=== PATIENT | male | born 1940 | race Caucasian/White ===

== ENCOUNTER 2017-07-04 19:50 | Inpatient (IN) | payer OTHER ==
[2017-07-04 20:00] VITALS: BMI 31.4
[2017-07-04 20:16] LABS: BASOPHIL 0.2 % (0-2.0); EOSINOPHIL 0.8 % (0-4.5); MCH 32.8 pg (25.7-33.7); MCHC 34.9 g/dl (32.0-35.9); MEAN CELL VOLUME 94.2 fl (80-96); MEAN PLT VOLUME 10.3 fl (7.5-11.1); NEUTROPHILS 74.9 % (42.8-82.8); PLATELET COUNT 115 K/MM3 (134-434); RDW 12.3 % (11.9-15.9); WHITE BLOOD COUNT 7.7 K/mm3 (4.0-10.8)
--- NOTE | 2017-07-04 20:16 | PDOC ---
History of Present Illness - General Chief Complaint: Redness To Affected Area Stated Complaint: REDNESS TO FACE, RT ORBITAL AREA Time Seen by Provider: 07/04/17 20:02 - History of Present Illness Initial Comments: This 76-year-old man presents with several day history of progressive right periorbital/right nasal erythema and edema. Patient states that he scraped the tip of his nose in the shower approximately 5 days ago. After this, his nose and right periorbital area became erythematous and increasingly edematous. He states that he did not have a significant amount of pain or fever/chills during this time. Yesterday morning, he noted that his right eye was swollen shut and he visited urgent care center. He was started on Augmentin/valacyclovir. He saw his PMD, Dr. Ojeda today. 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 He was referred here for evaluation and probable admission Past History - Past Medical History Allergies/Adverse Reactions: Allergies Allergy/AdvReac Type Severity Reaction Status Date / Time No Known Allergies Allergy Verified 07/04/17 19:57 Home Medications: Ambulatory Orders Amoxicillin/Potassium Clav [Augmentin 875-125 Tablet] 1 each PO Q12H 07/04/17 Valacyclovir HCl [Valtrex -] 1,000 mg PO Q8H 07/04/17 Other medical history: DENIES - Suicide/Smoking/Psychosocial Hx Smoking History: Never smoked Have you smoked in the past 12 months: No Hx Alcohol Use: No Drug/Substance Use Hx: No Substance Use Type: Alcohol Review of Systems - Review of Systems Able to Perform ROS?: Yes *Physical Exam - Vital Signs Last Vital Signs Temp Pulse Resp BP Pulse Ox 99.3 F 98 H 18 183/86 95 07/04/17 19:50 07/04/17 19:50 07/04/17 19:50 07/04/17 19:50 07/04/17 19:50 07/04/17 22:27 - Physical Exam Comments: GENERAL: Adult man, alert and oriented 3 in no acute distress Vital signs as noted HEAD: Normal with no signs of trauma. FACIAL: Marked erythema/edema of right periorbital area.. Right conjunctiva erythematous; cornea clear, pupil 2 mm and briskly reactive/equal No fluctuance/tenderness of right periorbital region; nose is erythematous and edematous with ulcerated lesion at tip NECK: Normal range of motion, supple without lymphadenopathy, JVD, or masses. LUNGS: Breath sounds equal, clear to auscultation bilaterally. No wheezes, and no crackles. HEART:Regular rate and rhythm, normal S1 and S2 without murmur, rub or gallop. ABDOMEN:.normal bowel sounds No guarding,tenderness or rebound.No masses No distention. EXTREMITIES: Normal range of motion, no edema. No clubbing or cyanosis. No erythema, or tenderness. NEUROLOGICAL: Cranial nerves II through XII grossly intact. Normal speech. No focal neurological deficits. MUSCULOSKELETAL: Back non-tender to palpation, no CVA tenderness 12-lead electrocardiogram is performed and interpreted by me. This shows normal sinus rhythm at 77 bpm. 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 No evidence of acute ST or T-wave abnormalities. There are no previous EKG tracings available for comparison. Portable chest x-ray shows no evidence of acute disease. ED Treatment Course - LABORATORY CBC & Chemistry Diagram: 07/04/17 20:01 07/04/17 20:01 Medical Decision Making - Medical Decision Making CBC/chemistry profile/lactic acid evaluated. CT of the facial bones and head performed (both noncontrast). Preliminary results from Imaging title one teacher: Right preseptal periorbital and infraorbital soft tissue swelling compatible with cellulitis. No evidence of drainable collection visualized. Orbits and globes are intact. Retrobulbar spaces are clear. No acute findings on head CT. Laboratory evaluation notable for normal white count of 7700; platelet count is slightly decreased at 115,000. Other than mild elevation of random glucose and mild elevation of transaminases /alkaline phosphatase, no significant abnormality of chemistry profile was seen. Lactic acid normal at 1.7 Case discussed with . Since he has had progression of his symptoms while on oral antibiotics (continues to be febrile/had evidence of mild confusion while in office), admission for parenteral antibiotics is warranted. Dr. Ojeda does not admit here. Hospitalist service will be contacted. 07/04/17 23:34 Case discussed with MARION Allison,. Patient will be admitted to [place] [facility]ist service. *DC/Admit/Observation/Transfer Diagnosis at time of Disposition: Orbital cellulitis on right, Facial cellulitis - Discharge Dispostion Condition at time of disposition: Stable Admit: Yes
[2017-07-04 20:26] LABS: ALBUMIN 3.6 g/dl (3.5-5.0); ALK PHOS 94 U/L (32-92); ANION GAP 8 (8-16); BILIRUBIN,TOTAL 0.9 mg/dl (0.2-1.0); CO2 23 mmol/L (22-28); CREATININE 0.9 mg/dl (0.6-1.3); GLUCOSE,RANDOM 215 mg/dl (74-106); SGOT/AST 47 U/L (10-42); SGPT/ALT 48 U/L (10-40); TOT PROT 7.3 g/dl (6.4-8.3)
[2017-07-04 21:37] LABS: INR 1.2 (0.82-1.09); PROTHROMBIN TIME (PATIENT) 13.5 SEC (10.2-13.0)
[2017-07-04 21:40] LABS: URINE APPEARANCE Clear; URINE BILIRUBIN Negative (NEGATIVE); URINE BLOOD Negative (NEGATIVE); URINE GLUCOSE (UA) Negative (NEGATIVE); URINE KETONE Negative (NEGATIVE); URINE LEUK ESTERASE Negative (NEGATIVE); URINE NITRITE Negative (NEGATIVE); URINE PROTEIN Negative (NEGATIVE)
[2017-07-04 21:41] LABS: URINE COLOR YELLOW
[2017-07-04] MEDS ORDERED: VANCOMYCIN 1,000 MG in DEXTROSE 5%-WATER - 250 ML IVPB ONE (22:15)
[2017-07-04] MEDS ORDERED: VANCOMYCIN 1,000 MG VIAL (RESTRICTED TO ID ONLY) ONE (22:17)
--- NOTE | 2017-07-04 23:27 | HP ---
CHIEF COMPLAINT: Facial/Orbital Swelling and Redness PCP: Dr. Ojeda HISTORY OF PRESENT ILLNESS: This is a 76 year old man with a recent history of mauro-orbital and facial Cellulitis. Patient presents to the ED with increased erythema and swelling to nose, R- orbit and face x 5 days. Patient reports being seen by his PCP and was sent in for admission for Cellulitis. Patient reports hitting his nose on the shower faucet last Wednesday, resulting in a cut. He then reports noting erythema and edema to his nose which spread to his R- orbit and R- side of face. He reports going to urgent care for treatment Rx- Augmentin, Valcylovir. Patient reports being UTD with his TD vaccine. Patient reports difficulty swallowing. Patient denies fever, chills, cough, dizziness, POPE, CP, AP, N/V/D, dysuria. Patient denies numbness or tingling. ER course was notable for: (1) CT Facial Bones/Head: Right preseptal periorbital and infraorbital soft tissue swelling compatible with cellulitis. No evidence of drainable collection visualized. 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 Family History: Non-Contributory Allergies No Known Allergies Allergy (Verified 07/04/17 19:57) HOME MEDICATIONS: Home Medications Medication Instructions Recorded Amoxicillin/Potassium Clav 1 each PO Q12H 07/04/17 [Augmentin 875-125 Tablet] Valacyclovir HCl [Valtrex -] 1,000 mg PO Q8H 07/04/17 REVIEW OF SYSTEMS CONSTITUTIONAL: Absent: fever, chills, diaphoresis, generalized weakness, malaise, loss of appetite, weight change HEENT: difficulty swallowing, marked erythema, swelling to R- periorbital, yellow crusting to R- eyelid, + R conjunctivae injection ,R- side of face, ulceration to tip of nose Absent: rhinorrhea, nasal congestion, throat pain, throat swelling, mouth swelling, ear pain, eye pain, visual changes CARDIOVASCULAR: Absent: chest pain, syncope, palpitations, irregular heart rate, lightheadedness , peripheral edema RESPIRATORY: Absent: cough, shortness of breath, dyspnea with exertion, orthopnea, wheezing, stridor, hemoptysis GASTROINTESTINAL: Absent: abdominal pain, abdominal distension, nausea, vomiting, diarrhea, constipation, melena, hematochezia GENITOURINARY: Absent: dysuria, frequency, urgency, hesitancy, hematuria, flank pain, genital pain MUSCULOSKELETAL: Absent: myalgia, arthralgia, joint swelling, back pain, neck pain SKIN: Absent: rash, itching, pallor HEMATOLOGIC/IMMUNOLOGIC: Absent: easy bleeding, easy bruising, lymphadenopathy, frequent infections ENDOCRINE: Absent: unexplained weight gain, unexplained weight loss, heat intolerance, cold intolerance NEUROLOGIC: Absent: headache, focal weakness or paresthesias, dizziness, unsteady gait, seizure, mental status changes, bladder or bowel incontinence PSYCHIATRIC: Absent: anxiety, depression, suicidal or homicidal ideation, hallucinations. PHYSICAL EXAMINATION GENERAL:Obese, awake, alert, and fully oriented, in no acute distress. HEAD: Normal with no signs of trauma. +erythema/swelling to R- side of face, EYES: Pupils equal, round and reactive to light. marked erythema, swelling to R - periorbital, yellow crusting to R- eyelid, + R conjunctivae injection. ulceration to tip of nose EARS, NOSE, THROAT: Ears normal, nares patent, oropharynx clear without exudates. Dry mucous membranes. ulceration to tip of nose NECK: Normal range of motion, supple without lymphadenopathy, JVD, or masses. LUNGS: Breath sounds equal, clear to auscultation bilaterally. No wheezes, and no crackles. No accessory muscle use. HEART: Regular rate and rhythm, normal S1 and S2 without murmur, rub or gallop. ABDOMEN: Soft, nontender, not distended, normoactive bowel sounds, no guarding, no rebound, no masses. No hepatomegaly or splenomegaly. MUSCULOSKELETAL: Normal range of motion at all joints. No bony deformities or tenderness. No CVA tenderness. UPPER EXTREMITIES: 2+ pulses, warm, well-perfused. No cyanosis. No clubbing. No peripheral edema. LOWER EXTREMITIES: 2+ pulses, warm, well-perfused. No calf tenderness. No peripheral edema. Vascular changes to bilateral legs noted NEUROLOGICAL: Cranial nerves II-XII intact. Normal speech. Gait not observed. PSYCHIATRIC: Cooperative. Good eye contact. Appropriate mood and affect. SKIN: Warm, dry, normal turgor, no rashes. normal capillary refill. Laboratory Results - last 24 hr 07/04/17 07/04/17 07/04/17 20:00 20:01 20:01 WBC 7.7 RBC 4.45 Hgb 14.6 Hct 41.9 MCV 94.2 MCH 32.8 MCHC 34.9 RDW 12.3 Plt Count 115 L D MPV 10.3 Neutrophils % 74.9 Lymphocytes % 15.4 D Monocytes % 8.7 Eosinophils % 0.8 Basophils % 0.2 PT with INR INR Sodium 130 L Potassium 3.9 Chloride 99 Carbon Dioxide 23 Anion Gap 8 BUN 14 Creatinine 0.9 Creat Clearance w eGFR > 60 Random Glucose 215 H Lactic Acid 1.7 Calcium 9.0 Total Bilirubin 0.9 AST 47 H ALT 48 H Alkaline Phosphatase 94 H Total Protein 7.3 Albumin 3.6 Urine Color Urine Appearance Urine pH Ur Specific [place] Urine Protein Urine Glucose (UA) Urine Ketones Urine Blood Urine Nitrite Urine Bilirubin Urine Urobilinogen Ur Leukocyte Esterase 07/04/17 07/04/17 07/04/17 20:02 20:35 21:30 WBC RBC Hgb Hct MCV MCH MCHC RDW Plt Count MPV Neutrophils % Lymphocytes % Monocytes % Eosinophils % Basophils % PT with INR Cancelled 13.5 H INR Cancelled 1.20 Sodium Potassium Chloride Carbon Dioxide Anion Gap BUN Creatinine Creat Clearance w eGFR Random Glucose Lactic Acid Calcium Total Bilirubin AST ALT Alkaline Phosphatase Total Protein Albumin Urine Color Yellow Urine Appearance Clear Urine pH 5.0 Ur Specific [place] 1.010 Urine Protein Negative Urine Glucose (UA) Negative Urine Ketones Negative Urine Blood Negative Urine Nitrite Negative Urine Bilirubin Negative Urine Urobilinogen 1.0 Ur Leukocyte Esterase Negative Radiology Studies: CT of the facial bones and head performed (both noncontrast). Preliminary results from Imaging contract law specialist: Right preseptal periorbital and infraorbital soft tissue swelling compatible with cellulitis. No evidence of drainable collection visualized. Orbits and globes are intact. Retrobulbar spaces are clear. No acute findings on head CT. ASSESSMENT/PLAN: This is a 76 y/o man with no significant medical hx. Admitted for Facial, Periorbital Cellulitis secondary to Failed Out Patient Therapy, Hyponatremia for further evaluation of their emergent condition. Plan: 1. Cellulitis: Facial/Periorbital - Failed Out Patient Therapy - CT facial/Head- See above - Vancomycin given in ED will continue - Appreciate ID Consult - No leukocytosis, No shift, remains afebrile likely secondary to recent ABX use - LA- wnl - Blood Cultures-pending - Monitor CBC, BMP - Monitor vitals - HOB elevated 2. Hyponatremia - Likely secondary to dehydration - NS bolus given in ED - Na Corrected 131 - Will continue gentle IVF - Repeat BMP in am - Monitor vitals 3. Mild Transaminitis - Continue to monitor and treat with interventions accordingly 4. FEN - NS@42ml/hr - Replete Na - NPO 5. DVT Prophylaxis - OOB - SCDs - Heparin Sq, monitor for Thrombocytopenia Code Status: Full code Dispo: requires Inpatient care Problem List - Problem (1) Facial cellulitis Code(s): L03.211 - CELLULITIS OF FACE (2) Orbital cellulitis on right Code(s): H05.011 - CELLULITIS OF RIGHT ORBIT Visit type - Emergency Visit Emergency Visit: Yes ED Registration Date: 07/04/17 Care time: The patient presented to the Emergency Department on the above date and was hospitalized for further evaluation of their emergent condition. - New Patient This patient is new to me today: Yes Date on this admission: 07/05/17 - Critical Care Critical Care patient: No
[2017-07-04] MEDS ORDERED: SODIUM CHLORIDE 1,000 ML IV SCH (23:45)
[2017-07-05 08:17] LABS: ANION GAP 7 (8-16); CALCIUM 8.8 mg/dl (8.4-10.2); CO2 28 mmol/L (22-28); CREATININE 0.9 mg/dl (0.6-1.3); GLUCOSE,RANDOM 145 mg/dl (74-106)
[2017-07-05 08:18] LABS: BASOPHIL 1.2 % (0-2.0); EOSINOPHIL 2.5 % (0-4.5); MCH 32.2 pg (25.7-33.7); MCHC 33.7 g/dl (32.0-35.9); MEAN CELL VOLUME 95.6 fl (80-96); MEAN PLT VOLUME 9.8 fl (7.5-11.1); PLATELET COUNT 101 K/MM3 (134-434); RDW 12.1 % (11.9-15.9); WHITE BLOOD COUNT 5.7 K/mm3 (4.0-10.8)
--- NOTE | 2017-07-05 09:21 | PN ---
Physical Exam: SUBJECTIVE: Patient seen and examined, reports a burning sensation to the right side of the face, patient denies any tactile fevers. OBJECTIVE: patient is a 76 y/o male with no significant past medical history, admitted from the emergency department for periorbital cellultis. Vital Signs Period Temp Pulse Resp BP Sys/Yuan Pulse Ox Last 24 Hr 98.4 F-98.7 F 69-81 18-19 149-158/74-77 95-98 GENERAL: The patient is awake, alert, and fully oriented, in no acute distress. HEAD: Normal with no signs of trauma, vesicle with crusting to tip of nose. macular rash noted to forehead and right lateral face EYES: PERRL, extraocular movements intact, sclera anicteric, right eye-> injected sclera, perrla, eomi, erythema noted to the upper eylid, crusting noted to eyelashes. + ptosis. vesicle noted to the right outer canthus ENT: Ears normal, nares patent, oropharynx clear without exudates, moist mucous membranes. NECK: Trachea midline, full range of motion, supple. LUNGS: Breath sounds equal, clear to auscultation bilaterally, no wheezes, no crackles, no accessory muscle use. HEART: Regular rate and rhythm, S1, S2 without murmur, rub or gallop. ABDOMEN: Soft, nontender, nondistended, normoactive bowel sounds, no guarding, no rebound, no hepatosplenomegaly, no masses. EXTREMITIES: 2+ pulses, warm, well-perfused, no edema. NEUROLOGICAL: Cranial nerves II through XII grossly intact. Normal speech, gait not observed. PSYCH: Normal mood, normal affect. SKIN: Warm, dry, normal turgor, no rashes or lesions noted Laboratory Results - last 24 hr 07/05/17 07/05/17 07:00 07:00 WBC 5.7 RBC 4.23 Hgb 13.6 Hct 40.4 MCV 95.6 MCH 32.2 MCHC 33.7 RDW 12.1 Plt Count 101 L MPV 9.8 Neutrophils % 64.0 Lymphocytes % 19.5 D Monocytes % 12.8 H Eosinophils % 2.5 D Basophils % 1.2 D Sodium 136 Potassium 4.0 Chloride 101 Carbon Dioxide 28 D Anion Gap 7 L BUN 14 Creatinine 0.9 Random Glucose 145 H D Calcium 8.8 Active Medications Generic Name Dose Route Start Last Admin Trade Name Freq PRN Reason Stop Dose Admin Sodium Chloride 1,000 mls @ 125 mls/hr 07/05/17 10:00 07/05/17 10:41 Normal Saline - IV 125 mls/hr ASDIR MICHELLE Administration Acyclovir 1,000 mg/ Dextrose 270 mls @ 270 mls/hr 07/05/17 10:45 07/05/17 11:34 IVPB 270 mls/hr Q8H-IV MICHELLE Administration Cefazolin Sodium 50 mls @ 100 mls/hr 07/05/17 10:00 07/05/17 10:41 Ancef 1 Gm Premixed Ivpb - IVPB 100 mls/hr Q8H-IV MICHELLE Administration Radiology Studies: CT of the facial bones and head performed (both noncontrast). Preliminary results from Imaging filtration operator: Right preseptal periorbital and infraorbital soft tissue swelling compatible with cellulitis. No evidence of drainable collection visualized. Orbits and globes are intact. Retrobulbar spaces are clear. No acute findings on head CT. ASSESSMENT/PLAN: 1. ID Cellulitis: Facial/Periorbital - high clinical suspicion for herpes zooster with opthalomic involvement, start acylovir IV, case discussed with opthamologist, Dr Hill will evaluate patient today. - vanc (07/04-07/05), start ancef for suspected superinfection - appreciate ID and opthamology input 2. Hyponatremia - Likely secondary to dehydration, resolved after IV hydration - repeat serum sodium 136 3. GI Mild Transaminitis - benign abdominal exam, likely secondary to viral infection, close monitoring 4. FEN - NS@ 125ml/hr - Replete Na - sodium controlled diet 5. DVT Prophylaxis - OOB - SCDs - Heparin Sq, monitor for Thrombocytopenia Code Status: Full code Dispo: requires Inpatient care Visit type - Emergency Visit Emergency Visit: Yes ED Registration Date: 07/04/17 Care time: The patient presented to the Emergency Department on the above date and was hospitalized for further evaluation of their emergent condition. - New Patient This patient is new to me today: Yes Date on this admission: 07/05/17 - Critical Care Critical Care patient: No - Discharge Referral Referred to [facility] No
--- NOTE | 2017-07-05 09:54 | PN ---
Progress Note (short form) - Note Progress Note: ID Consult dictated Probable Herpes Zoster ( R V1 distribution) ? Herpes ophthalmicus Start ACV 10mg/ kg q8h IVPB IVF hydration Viral culture Urgent ophtho evaluation Contact precautions
[2017-07-05] MEDS ORDERED: VANCOMYCIN 1,000 MG in DEXTROSE 5%-WATER - 250 ML IVPB SCH (10:00)
[2017-07-05] MEDS ORDERED: VANCOMYCIN 1,000 MG in DEXTROSE 5%-WATER - 250 ML IVPB ONE (10:00)
[2017-07-05] MEDS: CEFAZOLIN 1 GM/D5W 50 ML IVPB SCH ×2 (10:41→17:18)
[2017-07-05] MEDS: SODIUM CHLORIDE 1,000 ML IV SCH (10:41)
--- NOTE | 2017-07-05 10:54 | CONS ---
DATE OF CONSULTATION: HISTORY: The patient is a 76-year-old previously healthy male who was evaluated for right facial rash. He developed right periorbital and right nasal erythema and swelling approximately 5 days prior to admission. He reports that he may have sustained trauma to the tip of his nose while in the shower 5 days prior to admission. He developed worsening pain, erythema, and swelling of the right periorbital and right nasal area. He presented to an urgent care center where he was prescribed Augmentin and Valium. Despite the treatment, symptoms worsened. He presented to his primary care doctor where he was reported to have fever to 101 and was mildly confused. He was referred admission to the hospital. On presentation, he has what appears to be a vesicular rash including the right periorbital area as well as periorbital edema, erythema involving the periorbital area and the bridge of the nose as well as conjunctivitis. CAT scan of the facial bones shows soft tissue swelling without evidence of abscess. PAST MEDICAL HISTORY: Negative. ALLERGIES: No known allergies. MEDICATIONS: No home medications. 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 He is a nonsmoker. Occasional ETOH. SYSTEMS REVIEW: Neurologic: No loss of consciousness, seizure activity, focal weakness. Cardiac: Negative chest pain or palpitations. Respiratory: Negative for cough or sputum production. Gastrointestinal: Negative vomiting or diarrhea. Genitourinary: Negative for urinary tract infection. LABORATORY DATA: White count 5.7, white count 40.4, platelet count 101, BUN 14, creatinine 0.9, total bilirubin 0.9, alkaline phosphatase 94, AST 47. Urinalysis negative leukocyte esterase. Blood cultures pending. PHYSICAL EXAMINATION: General: He is awake and alert. He is in moderate distress secondary to periorbital pain. Vital Signs: Temperature 98.4, blood pressure 149/77, pulse 69 and regular, respirations 19 per minute. HEENT: There is marked right periorbital edema. The right upper and lower eyelids are swollen. He has what appear to be pustular lesions present in the mandaen area. There is diffuse swelling and erythema of the bridge of the nose as well as a necrotic ulcerative-type lesion at the tip of the nose. The right cornea is injected with some discharge. Oropharynx negative. Heart: Sounds S1, S2. Lungs: Clear bilaterally. No rales, rhonchi, or wheezing. Abdomen: Soft. No tenderness elicited. Extremities: Negative for edema. IMPRESSION: 1. Probable herpes zoster involving the right V1 distribution. 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 PLAN: Presence of ulcerative lesion at the tip of the nose suggestive of Fox sign, which it would imply involvement of the right cornea. Advise urgent ophthalmology evaluation. Start acyclovir 10 mg/kg IV piggyback every 8 hours in conjunction with IV fluid hydration. We will also give cefazolin for possible secondary bacterial infection. Contact precautions. Analgesics p.r.n. Case discussed with hospitalist. Thank you for the kind referral. MONICA CUEVA M.D. [id number]
[2017-07-05] MEDS: ACYCLOVIR INJECTION 1,000 MG in DEXTROSE 5%-WATER - 250 ML IVPB SCH ×2 (11:34→17:18)
[2017-07-05] MEDS ORDERED: PT OWN MED DRAWER 7, Y5N ONE (17:13)
[2017-07-06] MEDS ORDERED: PT OWN MED DRAWER 7, Y5N ONE ×4 (00:44→21:06)
[2017-07-06] MEDS: ACYCLOVIR INJECTION 1,000 MG in DEXTROSE 5%-WATER - 250 ML IVPB SCH ×3 (02:03→18:06)
[2017-07-06] MEDS: CEFAZOLIN 1 GM/D5W 50 ML IVPB SCH ×3 (02:04→18:05)
[2017-07-06] MEDS: GENTAMICIN SULFATE 0.3% OPHTHALMIC (EYE DROPS) 5ML BOTTLE OD SCH ×3 (08:00→21:08)
[2017-07-06] MEDS: SODIUM CHLORIDE 1,000 ML IV SCH (10:07)
[2017-07-06] MEDS: BACITRACIN 3.5 GM OPTHALMIC OINT TUBE OD SCH ×2 (10:07→21:08)
--- NOTE | 2017-07-06 10:13 | PN ---
Progress Note, Physician History of Present Illness: Reports less R periorbital pain and swelling No c/o R eye pain Visual acuity intact Afebrile WBC WNL plt 101 BC no growth - Current Medication List Current Medications: Active Medications Bacitracin (Bacitracin Ophthalmic Oint -) 1 applic OD BID [facility] Last Admin: 07/06/17 10:07 Dose: 1 applic Gentamicin Sulfate (Gentamicin 0.3% Eye Drops -) 1 drop OD TID [facility] Last Admin: 07/06/17 08:00 Dose: 1 drop Sodium Chloride (Normal Saline -) 1,000 mls @ 125 mls/hr IV ASDIR [facility] Last Admin: 07/06/17 10:07 Dose: 125 mls/hr Acyclovir 1,000 mg/ Dextrose 270 mls @ 270 mls/hr IVPB Q8H-IV [facility] Last Admin: 07/06/17 02:03 Dose: 270 mls/hr Cefazolin Sodium (Ancef 1 Gm Premixed Ivpb -) 50 mls @ 100 mls/hr IVPB Q8H-IV [facility] Last Admin: 07/06/17 10:06 Dose: 100 mls/hr - Objective Vital Signs: Vital Signs Temperature 98.4 F 07/06/17 05:39 Pulse Rate 69 07/06/17 05:39 Respiratory Rate 18 07/06/17 08:38 Blood Pressure 161/81 07/06/17 05:39 O2 Sat by Pulse Oximetry (%) 97 07/06/17 08:38 Constitutional: Yes: No Distress Eyes: Yes: Other (+ R conjuctival injection No discharge). No: Conjunctiva Clear HENT: Yes: Other (decreased R periorbital swelling; dry ulcer, tip of nose) Cardiovascular: Yes: Regular Rate and Rhythm, S1, S2 Respiratory: Yes: CTA Bilaterally Gastrointestinal: Yes: Normal Bowel Sounds, Soft. No: Tenderness Edema: No Labs: CBC, BMP 07/05/17 07:00 07/05/17 07:00 INR, PTT INR 1.20 (0.82-1.09) 07/04/17 21:30 Assessment/Plan Herpes Zoster R V1 dermatome Herpes ophthalmicus Thrombocytopenia Continue IV acyclovir, IVF hydration Topical tx per ophtho
--- NOTE | 2017-07-06 13:30 | PN ---
Physical Exam: SUBJECTIVE: Patient seen and examined, patient reports improvement to swelling of right eye OBJECTIVE:patient is a 76 y/o male with no significant past medical history, admitted from the emergency department for periorbital cellultis. Vital Signs Period Temp Pulse Resp BP Sys/Yuan Pulse Ox Last 24 Hr 98.4 F 69 18-19 161/81 95-97 GENERAL: The patient is awake, alert, and fully oriented, in no acute distress. HEAD: Normal with no signs of trauma, vesicle with crusting to tip of nose. macular rash noted to forehead and right lateral face much improved EYES: PERRL, extraocular movements intact, sclera anicteric, right eye-> injected sclera, perrla, eomi, erythema noted to the upper eylid, crusting noted to eyelashes. crusted vesicle noted to the righ touter canthus ENT: Ears normal, nares patent, oropharynx clear without exudates, moist mucous membranes. NECK: Trachea midline, full range of motion, supple. LUNGS: Breath sounds equal, clear to auscultation bilaterally, no wheezes, no crackles, no accessory muscle use. HEART: Regular rate and rhythm, S1, S2 without murmur, rub or gallop. ABDOMEN: Soft, nontender, nondistended, normoactive bowel sounds, no guarding, no rebound, no hepatosplenomegaly, no masses. EXTREMITIES: 2+ pulses, warm, well-perfused, no edema. NEUROLOGICAL: Cranial nerves II through XII grossly intact. Normal speech, gait not observed. PSYCH: Normal mood, normal affect. SKIN: Warm, dry, normal turgor, no rashes or lesions noted Active Medications Generic Name Dose Route Start Last Admin Trade Name Freq PRN Reason Stop Dose Admin Bacitracin 1 applic 07/06/17 10:00 07/06/17 10:07 Bacitracin Ophthalmic Oint - OD 1 applic BID MICHELLE Administration Gentamicin Sulfate 1 drop 07/06/17 07:30 07/06/17 08:00 Gentamicin 0.3% Eye Drops - OD 1 drop TID MICHELLE Administration Sodium Chloride 1,000 mls @ 125 mls/hr 07/05/17 10:00 07/06/17 10:07 Normal Saline - IV 125 mls/hr ASDIR MICHELLE Administration Acyclovir 1,000 mg/ Dextrose 270 mls @ 270 mls/hr 07/05/17 10:45 07/06/17 10:11 IVPB 270 mls/hr Q8H-IV MICHELLE Administration Cefazolin Sodium 50 mls @ 100 mls/hr 07/05/17 10:00 07/06/17 10:06 Ancef 1 Gm Premixed Ivpb - IVPB 100 mls/hr Q8H-IV MICHELLE Administration Microbiology 07/04/17 20:15 Blood - Peripheral Venous Blood Culture - Preliminary NO GROWTH OBTAINED AFTER 24 HOURS, INCUBATION TO CONTINUE FOR 4 DAYS. 07/04/17 20:00 Blood - Peripheral Venous Blood Culture - Preliminary NO GROWTH OBTAINED AFTER 24 HOURS, INCUBATION TO CONTINUE FOR 4 DAYS. Radiology Studies: CT of the facial bones and head performed (both noncontrast). Preliminary results from Imaging production foreman: Right preseptal periorbital and infraorbital soft tissue swelling compatible with cellulitis. No evidence of drainable collection visualized. Orbits and globes are intact. Retrobulbar spaces are clear. No acute findings on head CT. ASSESSMENT/PLAN: 1. ID Cellulitis: Facial/Periorbital - continue acylovir IV, vanc (07/04-07/05), continue ancef (07/05-) - opthamology consulted, Dr Hill start gentamycin and bacitracin - ID and opthamology consulted and following 2. Hyponatremia - Likely secondary to dehydration, resolved after IV hydration - repeat serum sodium 136 3. GI Mild Transaminitis - benign abdominal exam, likely secondary to viral infection, close monitoring 4. FEN - Replete Na - sodium controlled diet 5. DVT Prophylaxis - OOB - SCDs - Heparin Sq, monitor for Thrombocytopenia Code Status: Full code Dispo: requires Inpatient care Visit type - Emergency Visit Emergency Visit: Yes ED Registration Date: 07/04/17 Care time: The patient presented to the Emergency Department on the above date and was hospitalized for further evaluation of their emergent condition. - New Patient This patient is new to me today: No - Critical Care Critical Care patient: No - Discharge Referral Referred to [facility] No
[2017-07-06 15:31] LABS: ALBUMIN 3.3 g/dl (3.5-5.0); ALK PHOS 99 U/L (32-92); ANION GAP 8 (8-16); BILIRUBIN,TOTAL 0.6 mg/dl (0.2-1.0); CALCIUM 8.5 mg/dl (8.4-10.2); CO2 26 mmol/L (22-28); CREATININE 1.3 mg/dl (0.6-1.3); GLUCOSE,RANDOM 200 mg/dl (74-106); SGOT/AST 60 U/L (10-42); SGPT/ALT 54 U/L (10-40); TOT PROT 6.7 g/dl (6.4-8.3)
[2017-07-06 15:34] LABS: BASOPHIL 0.5 % (0-2.0); EOSINOPHIL 2.3 % (0-4.5); MCH 32.5 pg (25.7-33.7); MCHC 33.7 g/dl (32.0-35.9); MEAN CELL VOLUME 96.5 fl (80-96); MEAN PLT VOLUME 10.4 fl (7.5-11.1); NEUTROPHILS 65.5 % (42.8-82.8); PLATELET COUNT 106 K/MM3 (134-434); RDW 12.2 % (11.9-15.9)
--- NOTE | 2017-07-06 18:22 | EKG ---
Test Reason : Blood Pressure : / mmHG Vent. Rate : 077 BPM Atrial Rate : 077 BPM P-R Int : 190 ms QRS Dur : 174 ms QT Int : 406 ms P-R-T Axes : 006 -75 012 degrees QTc Int : 459 ms NORMAL SINUS RHYTHM RIGHT BUNDLE BRANCH BLOCK LEFT ANTERIOR FASCICULAR BLOCK BIFASCICULAR BLOCK MINIMAL VOLTAGE CRITERIA FOR LVH, MAY BE NORMAL VARIANT SEPTAL INFARCT , AGE UNDETERMINED ABNORMAL ECG NO PREVIOUS ECGS AVAILABLE REPEAT EKG IF CLINICALLY INDICATED Confirmed by ERIC SUNG MD ([id number]) on 07/06/2017 6:22:23 PM Referred By: TARA VERONICA Confirmed By:ERIC SUNG MD
[2017-07-07] MEDS: CEFAZOLIN 1 GM/D5W 50 ML IVPB SCH ×2 (01:20→09:56)
[2017-07-07] MEDS ORDERED: PT OWN MED DRAWER 7, Y5N ONE ×3 (01:38→09:35)
[2017-07-07] MEDS: ACYCLOVIR INJECTION 1,000 MG in DEXTROSE 5%-WATER - 250 ML IVPB SCH ×2 (01:55→09:56)
[2017-07-07] MEDS: GENTAMICIN SULFATE 0.3% OPHTHALMIC (EYE DROPS) 5ML BOTTLE OD SCH (06:26)
[2017-07-07 06:35] VITALS: BP 172/85; PULSE 74; TEMP 97.8
--- NOTE | 2017-07-07 08:03 | DS ---
Physical Exam: SUBJECTIVE: Patient seen and examined, reports feeling better, denies any tactile fever. OBJECTIVE:This is a 76 year old man with a recent history of mauro-orbital and facial Cellulitis. Patient presents to the ED with increased erythema and swelling to nose, R- orbit and face x 5 days. Patient reports being seen by his PCP and was sent in for admission for Cellulitis. Patient reports hitting his nose on the shower faucet last Wednesday, resulting in a cut. He then reports noting erythema and edema to his nose which spread to his R- orbit and R- side of face. He reports going to urgent care for treatment Rx- Augmentin, Valcylovir. Patient reports being UTD with his TD vaccine. Patient reports difficulty swallowing. Patient denies fever, chills, cough, dizziness, POPE, CP, AP, N/V/D, dysuria. Patient denies numbness or tingling. ER course was notable for: (1) CT Facial Bones/Head: Right preseptal periorbital and infraorbital soft tissue swelling compatible with cellulitis. No evidence of drainable collection visualized. (2) Na 130 (3) Mildly elevated LFTs- 47/48/94 Vital Signs Period Temp Pulse Resp BP Sys/Yuan Pulse Ox Last 24 Hr 97.8 F-98.9 F 74-77 18-19 145-172/68-85 97-98 PHYSICAL EXAM GENERAL: The patient is awake, alert, and fully oriented, in no acute distress. HEAD: Normal with no signs of trauma, vesicle with crusting to tip of nose. macular rash noted to forehead and right lateral face much improved EYES: PERRL, extraocular movements intact, sclera anicteric, right eye-> injected sclera, perrla, eomi, erythema noted to the upper eylid, crusting noted to eyelashes. crusted vesicle noted to the right outer canthus ENT: Ears normal, nares patent, oropharynx clear without exudates, moist mucous membranes. NECK: Trachea midline, full range of motion, supple. LUNGS: Breath sounds equal, clear to auscultation bilaterally, no wheezes, no crackles, no accessory muscle use. HEART: Regular rate and rhythm, S1, S2 without murmur, rub or gallop. ABDOMEN: Soft, nontender, nondistended, normoactive bowel sounds, no guarding, no rebound, no hepatosplenomegaly, no masses. EXTREMITIES: 2+ pulses, warm, well-perfused, no edema. NEUROLOGICAL: Cranial nerves II through XII grossly intact. Normal speech, gait not observed. PSYCH: Normal mood, normal affect. SKIN: Warm, dry, normal turgor, no rashes or lesions noted LABS Laboratory Results - last 24 hr 07/06/17 07/06/17 15:00 15:00 WBC 6.0 RBC 4.36 Hgb 14.2 Hct 42.1 MCV 96.5 H MCH 32.5 MCHC 33.7 RDW 12.2 Plt Count 106 L MPV 10.4 Neutrophils % 65.5 Lymphocytes % 20.5 Monocytes % 11.2 H Eosinophils % 2.3 Basophils % 0.5 Sodium 135 L Potassium 4.2 Chloride 101 Carbon Dioxide 26 Anion Gap 8 BUN 16 Creatinine 1.3 D Creat Clearance w eGFR 53.53 Random Glucose 200 H D Calcium 8.5 Total Bilirubin 0.6 D AST 60 H D ALT 54 H Alkaline Phosphatase 99 H Total Protein 6.7 Albumin 3.3 L Microbiology 07/04/17 20:15 Blood - Peripheral Venous Blood Culture - Preliminary NO GROWTH OBTAINED AFTER 48 HOURS, INCUBATION TO CONTINUE FOR 3 DAYS. 07/04/17 20:00 Blood - Peripheral Venous Blood Culture - Preliminary NO GROWTH OBTAINED AFTER 48 HOURS, INCUBATION TO CONTINUE FOR 3 DAYS. Radiology Studies: CT of the facial bones and head performed (both noncontrast). Preliminary results from Imaging marketing content specialist: Right preseptal periorbital and infraorbital soft tissue swelling compatible with cellulitis. No evidence of drainable collection visualized. Orbits and globes are intact. Retrobulbar spaces are clear. No acute findings on head CT. HOSPITAL COURSE: Patient was admitted to the hospital for Facial/Periorbital, he was treated with acylovir IV 07/05-07/07/17, vanc (07/04-07/05), ancef (07/05- 07/07). Opthamology consulted, Dr Hill patient was started on gentamycin and bacitracin. ID Dr Villafana was consulted and followed throughout admission. Hyponatremia was noted upon admission, Likely secondary to dehydration, resolved after IV hydration. Mild Transaminitis was noted, benign abdominal exam, likely secondary to viral infection, PLAN Date of Admission:07/04/17 Date of Discharge: 07/07/17 Minutes to complete discharge: 45 Discharge Summary Reason For Visit: ORBITAL CELLULITIS ON FACIAL CELLULITIS Current Active Problems Facial cellulitis (Acute) Orbital cellulitis on right (Acute) Condition: Improved - Instructions Diet, Activity, Other Instructions: you were admitted to the hospital for cellulitis of the face due to shingles continue valtrex for the next 7 days continue eye drop and eye ointment for the next 7 days please follow up with the carpenter refrigerator within 1 week. if any new or persistent symptoms develop please return to the emergency department Referrals: Asaf Ren MD [Staff Physician] - Lewis Ojeda MD [Primary Care Provider] - Disposition: HOME - Home Medications Comprehensive Discharge Medication List: Ambulatory Orders Amoxicillin/Potassium Clav [Augmentin 875-125 Tablet] 1 each PO Q12H 07/04/17 Valacyclovir HCl [Valtrex -] 1,000 mg PO Q8H 07/04/17 This patient is new to me today: No Emergency Visit: Yes ED Registration Date: 07/04/17 Care time: The patient presented to the Emergency Department on the above date and was hospitalized for further evaluation of their emergent condition. Critical Care patient: No - Discharge Referral Referred to [facility] No
--- NOTE | 2017-07-07 08:33 | PN ---
Progress Note, Physician History of Present Illness: Awake, alert No c/o eye pain or change in visual acuity No R facial pain R periorbital swelling nearly all resolved - Current Medication List Current Medications: Active Medications Bacitracin (Bacitracin Ophthalmic Oint -) 1 applic OD BID [facility] Last Admin: 07/06/17 21:08 Dose: 1 applic Gentamicin Sulfate (Gentamicin 0.3% Eye Drops -) 1 drop OD TID [facility] Last Admin: 07/07/17 06:26 Dose: 1 drop Acyclovir 1,000 mg/ Dextrose 270 mls @ 270 mls/hr IVPB Q8H-IV [facility] Last Admin: 07/07/17 01:55 Dose: 270 mls/hr Cefazolin Sodium (Ancef 1 Gm Premixed Ivpb -) 50 mls @ 100 mls/hr IVPB Q8H-IV [facility] Last Admin: 07/07/17 01:20 Dose: 100 mls/hr - Objective Vital Signs: Vital Signs Temperature 97.8 F 07/07/17 05:00 Pulse Rate 74 07/07/17 05:00 Respiratory Rate 19 07/07/17 05:00 Blood Pressure 172/85 07/07/17 05:00 O2 Sat by Pulse Oximetry (%) 98 07/06/17 21:00 Constitutional: Yes: No Distress Eyes: Yes: Other (decreased R periorbital swelling. Dry pustular lesions R temporal area Decreased conjunctival injection R eye) Cardiovascular: Yes: Regular Rate and Rhythm, S1, S2 Respiratory: Yes: CTA Bilaterally Gastrointestinal: Yes: Normal Bowel Sounds, Soft. 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
[2017-07-07] MEDS: BACITRACIN 3.5 GM OPTHALMIC OINT TUBE OD SCH (09:56)
== END 2017-07-07 13:15 | disposition home or self-care (01) | DRG 603 ==
LOC: FER 19:50 → FM/S 23:06
PROVIDERS: ADMIT Internal Medicine; ATTEND Nurse Practitioner Family
DX: L03.213 Periorbital cellulitis (principal); B02.30 Zoster ocular disease, unspecified; E87.1 Hypo-osmolality and hyponatremia; L03.211 Cellulitis of face; E86.0 Dehydration; R74.0 Nonspecific elevation of levels of transaminase and lactic acid dehydrogenase [LDH]; D69.6 Thrombocytopenia, unspecified
CPT/HCPCS: 36415; 70450-TC; 70486-TC; 71010-TC; 80048; 80053; 81003; 83605; 85025; 85610; 87040; 87252; 93005; 99284-25

== ENCOUNTER 2018-07-13 17:29 | Emergency (ER) | payer OTHER ==
[2018-07-13 18:04] VITALS: BP 161/85; PULSE 74; TEMP 98; BMI 27.1
[2018-07-13] MEDS ORDERED: KETOROLAC TROMETHAMINE 60 MG/2 ML VIAL IM ONE (18:34)
--- NOTE | 2018-07-13 18:37 | PDOC ---
History of Present Illness - General History Source: Patient Exam Limitations: No Limitations - History of Present Illness Initial Comments: 07/13/18 18:38 The patient is a 77 year old male, with a significant past medical history of multiple R knee surgeries, who presents to the emergency department with difficulty ambulating secondary to right lower extremity pain after driving in a car for an hour on his way to work earlier today. He describes intermittent stiffness to his posterior right thigh and pain to his right knee with range and ambulation. He reports his pain has responded to anti inflammatories. He feels his knee pain is due to arthritis of the knee. He denies numbness or tingling. He denies any recent falls or trauma. He denies any other symptoms. The patient denies chest pain, shortness of breath, headache and dizziness. The patient denies fever, chills, nausea, vomit, diarrhea and constipation. The patient denies dysuria, frequency, urgency and hematuria. Allergies: NKDA Past surgical history: multiple R knee procedures Social Hx: lives alone with multiple family members in town. Denies smoking. Social ETOH. Family Hx: No heart disease. No metabolic diseases. <Aniya Sood - Last Filed: 07/13/18 18:37> - History of Present Illness Initial Comments: 07/17/18 07:22 Physical exam: Alert and oriented well-developed well-nourished no acute distress cheerful Afebrile, vital signs normal Head atraumatic. PERRLA 4 mm, fundi benign with sharp disc margins and good central venous pulsations. ENT clear Neck supple without bruit mass or nodes. No point tenderness or deformity Chest clear CV regular without murmur rub or gallop Abdomen benign Neurological C2 to 12 intact. No focal sensory or motor deficits. Strength full and symmetric. Cerebellum intact. Gait stable but there is a slight limp due to pain in the thigh. Right leg: Pulses full and symmetric. No sensory or motor deficits. Strength full and symmetric. No swelling, edema, or tenderness of the posterior calf. Homans is negative. There appears to be mild spasm and tenderness of the posterior calf muscles, with what the patient describes as "tightness" aggravated by weightbearing. Full range of motion of the hips without pain or limitation. The knee shows evidence of old surgery, scarring, synovial thickening, but no acute effusion, erythema, warmth, or tenderness. Impression: Musculoskeletal pain. No sign of peripheral neuropathy or central neurological disease Plan: Symptomatic treatment and orthopedic follow-up as directed. Return to ER if symptoms worsen or further symptoms develop. Adequately ambulatory and in no distress to follow-up as directed. <Fernando Abraham - Last Filed: 07/17/18 07:27> - General Chief Complaint: Weakness Stated Complaint: RT LEG WEAK Time Seen by Provider: 07/13/18 18:29 Past History <Aniya Sood - Last Filed: 07/13/18 18:37> - Past Medical History Cancer: Yes (SQUAMOUS CELL CHEST, BASAL CELL LF FOOT) COPD: No - Suicide/Smoking/Psychosocial Hx Smoking History: Never smoked Have you smoked in the past 12 months: No Information on smoking cessation initiated: No Hx Alcohol Use: No Drug/Substance Use Hx: No Substance Use Type: Alcohol Hx Substance Use Treatment: No <Fernando Abraham - Last Filed: 07/17/18 07:27> - Past Medical History Allergies/Adverse Reactions: Allergies Allergy/AdvReac Type Severity Reaction Status Date / Time No Known Allergies Allergy Verified 07/13/18 17:30 Home Medications: Ambulatory Orders Aspirin [Aspirin EC] 81 mg PO DAILY 12/30/17 Ibuprofen 600 mg PO TID #15 tablet 07/13/18 [place]-3 Fatty Acids/Fish Oil [Fish Oil 1,000 mg Capsule] 1 each PO DAILY Review of Systems - Review of Systems Able to Perform ROS?: Yes Comments:: 07/13/18 18:38 CONSTITUTIONAL: Absent: fever, chills, diaphoresis, generalized weakness, malaise, loss of appetite HEENT: Absent: rhinorrhea, nasal congestion, throat pain, throat swelling, difficulty swallowing, mouth swelling, ear pain, eye pain, visual Changes CARDIOVASCULAR: Absent: chest pain, syncope, palpitations, irregular heart rate, lightheadedness , peripheral edema RESPIRATORY: Absent: cough, shortness of breath, dyspnea with exertion, orthopnea, wheezing, stridor, hemoptysis GASTROINTESTINAL: Absent: abdominal pain, abdominal distension, nausea, vomiting, diarrhea, constipation, melena, hematochezia GENITOURINARY: Absent: dysuria, frequency, urgency, hesitancy, hematuria, flank pain, genital pain MUSCULOSKELETAL: (+) right knee pain. Right posterior thigh pain. Right LE pain with ambulation. Absent: joint swelling SKIN: Absent: rash, itching, pallor HEMATOLOGIC/IMMUNOLOGIC: Absent: easy bleeding, easy bruising, lymphadenopathy, frequent infections ENDOCRINE: Absent: unexplained weight gain, unexplained weight loss, heat intolerance, cold intolerance NEUROLOGIC: Absent: headache, focal weakness or paresthesia, dizziness, unsteady gait, seizure, mental status changes, bladder or bowel incontinence PSYCHIATRIC: Absent: anxiety, depression, suicidal or homicidal ideation, hallucinations <Aniya Sood - Last Filed: 07/13/18 18:37> *Physical Exam - Vital Signs Last Vital Signs Temp Pulse Resp BP Pulse Ox 98 F 74 20 161/85 99 07/13/18 17:30 07/13/18 17:30 07/13/18 17:30 07/13/18 17:30 07/13/18 17:30 - Physical Exam Comments: 07/13/18 18:38 GENERAL: Well developed, well nourished. Awake and alert. No acute distress. HEENT: Normocephalic, atraumatic. PERRLA, EOMI. No conjunctival pallor. Sclera are non- icteric. Moist mucous membranes. Oropharynx is clear. NECK: Supple. Full ROM. No JVD. Carotid pulses 2+ and symmetric, without bruits. No thyromegaly. No lymphadenopathy. CARDIOVASCULAR: Regular rate and rhythm. No murmurs, rubs, or gallops. Distal pulses are 2+ and symmetric. PULMONARY: No evidence of respiratory distress. Lungs clear to auscultation bilaterally. No wheezing, rales or rhonchi. ABDOMINAL: Soft. Non-tender. Non-distended. No rebound or guarding. No organomegaly. Normoactive bowel sounds. MUSCULOSKELETAL (+) right knee synovial thickening. Limited ROM in extension of approximately 10 degrees. Mild tenderness to palpation over the right posterior thigh muscles. Remainder of extremities with normal range of motion. No bony deformities. No CVA tenderness. EXTREMITIES: No cyanosis. No clubbing. No edema. No calf tenderness. SKIN: Warm and dry. Normal capillary refill. No rashes. No jaundice. NEUROLOGICAL: Alert, awake, appropriate. Cranial nerves 2-12 intact. No motor deficits in the upper extremities and lower extremities. Normoreflexic in the upper and lower extremities. Normal speech. Gait is normal with use of cane. PSYCHIATRIC: Cooperative. Good eye contact. Appropriate mood and affect. <Aniya Sood - Last Filed: 07/13/18 18:37> - Vital Signs Last Vital Signs Temp Pulse Resp BP Pulse Ox 98 F 74 20 161/85 99 07/13/18 17:30 07/13/18 17:30 07/13/18 17:30 07/13/18 17:30 07/13/18 17:30 <Fernando Abraham - Last Filed: 07/17/18 07:27> *DC/Admit/Observation/Transfer - Attestations Scribe Attestion: 07/13/18 18:39 Documentation prepared by Aniya Sood, acting as behavioral medical director for Fernando Santamaria MD <Aniya Sood - Last Filed: 07/13/18 18:37> - Discharge Dispostion Decision to Admit order: No <Fernando Abraham - Last Filed: 07/17/18 07:27> Diagnosis at time of Disposition: Musculoskeletal pain of right lower extremity - Discharge Dispostion Disposition: HOME Condition at time of disposition: Improved - Prescriptions Prescriptions: Ibuprofen 600 mg PO TID #15 tablet - Referrals Referrals: Jesus Mcallister MD [Staff Physician] - 1 week - Patient Instructions Printed Discharge Instructions: DI for Musculoskeletal Pain Additional Instructions: Rest, warm moist heat to the muscles of the leg. Ice to the knee. Ibuprofen as directed. Return to ER if symptoms worsen or further symptoms develop. Otherwise follow- up with software licensing specialist as directed and with your primary care physician. - Post Discharge Activity Forms/Work/School Notes: Back to Work
[2018-07-13] MEDS ORDERED: KETOROLAC TROMETHAMINE 30 MG/1 ML VIAL ONE (18:40)
== END 2018-07-13 19:21 | disposition home or self-care (01) ==
LOC: FER 17:29
PROC: 3E0233Z Introduction of Anti-inflammatory into Muscle, Percutaneous Approach (ICD-10-PCS; principal; 2018-07-13)
DX: M79.661 Pain in right lower leg (principal)
CPT/HCPCS: 99281-25

== ENCOUNTER 2019-02-13 09:28 | Day surgery (SDC) | payer OTHER | END 2019-02-13 12:30 | disposition home or self-care (01) | LOC: FASU 09:28 ==

== ENCOUNTER → 2019-05-01 | Emergency (ER) | payer BC, OTHER ==
[2019-05-01 11:32] VITALS: BMI 31.8
--- NOTE | 2019-05-01 12:22 | PDOC ---
History of Present Illness - General Chief Complaint: Shortness of Breath Stated Complaint: SOB Time Seen by Provider: 05/01/19 11:13 - History of Present Illness Initial Comments: Braulio Aranda is a 78yo man with a PMH of NIDDM, previous DVT who presents with generalized fatigue and SOB for 1-2 weeks. He is unable to specify exactly what he is feeling, but he says that it "takes him a while to get going" when he stands up and that he needs to take frequent breaks when walking around. This only occurs some of the time; other times he is able to walk around without difficulty. He denies any chest pain, lightheadedness, cough, fever/chills, nausea/vomiting, or sick contacts. He does endorse travel to [place] last month but has not had any other immobilization, surgery, pleuritic chest pain, or new leg swelling. He notes that he has chronic BLE with venous stasis, and his left leg has been larger than his right since his previous DVT. Mr Aranda was noted to be bradycardic down to 29 (range 29-41, mostly around 30 ) during his exam. He currently denies any chest pain, SOB, lightheadedness, vision changes, or other symptoms. Past History - Past Medical History Allergies/Adverse Reactions: Allergies Allergy/AdvReac Type Severity Reaction Status Date / Time No Known Allergies Allergy Verified 05/01/19 11:03 Home Medications: Ambulatory Orders Aspirin [Aspirin EC] 81 mg PO DAILY 12/30/17 Tamsulosin HCl [Flomax] 0.4 mg PO DAILY 02/09/19 Aspirin [ASA -] 325 mg PO ONCE 05/01/19 Famotidine [Pepcid] 20 mg PO DAILY 05/01/19 Metformin HCl [Metformin HCl ER] 500 mg PO DAILY 05/01/19 Cancer: Yes (SQUAMOUS CELL CHEST, BASAL CELL LF FOOT) COPD: No Diabetes: Yes Disorders: Yes (BPH) Other medical history: DVT 2003, VENOUS INSUFFICIENCY - Surgical History Orthopedic Surgery: Yes (KNEECAP AND QUAD) - Suicide/Smoking/Psychosocial Hx Smoking History: Never smoked Have you smoked in the past 12 months: No Information on smoking cessation initiated: No Hx Alcohol Use: No Drug/Substance Use Hx: No Substance Use Type: Alcohol Hx Substance Use Treatment: No Review of Systems - Review of Systems Comments:: General: No fevers, no chills, no weight or appetite change, no malaise, + Fatigue HEENT: No changes in vision, no changes in hearing, no congestion, no sore throat CV: No chest pain, no palpitations, no LE edema Pulm: + SOB, no cough, no wheezing GI: No nausea or vomiting, no change in bowel habits, no melena : No frequency, no urgency, no dysuria Musc: No back pain, no joint swelling, no recent injury Skin: No rash, no lesions, no erythema Endo: No excessive thirst, no heat/cold intolerance Heme: No unusual bruising or bleeding, no swollen glands Neuro: No syncope, no numbness/tingling, no focal weakness Vasc: No claudication Psych: No recent change in mood, no SI or HI *Physical Exam - Vital Signs Last Vital Signs Temp Pulse Resp BP Pulse Ox 98.1 F 66 22 H 177/56 H 94 L 05/01/19 11:02 05/01/19 11:02 05/01/19 11:02 05/01/19 11:02 05/01/19 11:02 - Physical Exam Comments: General: Comfortable, no acute distress HEENT: PERRL, EOMI, MMM, voice normal, normal neck ROM Cards: Bradycardic, regular, no murmur appreciated Pulm: Comfortable on room air, clear to auscultation bilaterally, no wheezing or crackles appreciated Abd: Soft, nontender, nondistended Ext: Atraumatic. 2+ LE edema, L>R. ROM intact. Vasc: Extremities WWP. Palpable radial and pedal pulses bilaterally Skin: Skin changes c/w venous stasis on BLE Neuro: A&Ox3, CN grossly intact, normal speech, motor/sensory grossly intact and symmetric Psych: Mood appropriate to situation ED Treatment Course - LABORATORY CBC & Chemistry Diagram: 05/01/19 12:00 05/01/19 12:00 - RADIOLOGY Radiology Studies Ordered: Category Date Time Status CHEST X-RAY PORTABLE* [RAD] Stat Radiology 05/01/19 11:50 Ordered Medical Decision Making - Medical Decision Making 05/01/19 11:52 Braulio Aranda is a 78yo man with a PMH of NIDDM, previous DVT who presents with generalized fatigue and SOB for 1-2 weeksand noted to be bradycardic to the 30' s on arrival. He currently denies any fatigue, weakness, chest pain, SOB, lightheadedness or other symptoms - Pacer pads placed - Continuous cardiac monitoring - EKG w/ HR 41, 1:1 2nd degree block. RBBB with left anterior fascicular block. TX 228, QRS 172, QTc 529, left axis. - CBC, CMP, mag, phos, BNP, trop, CK, TSH - Call to PMD (Dr Ojeda) to determine if pt has a air valve mechanic 05/01/19 12:34 - No return call from Dr Ojeda - Call placed to Dr Dennis for cardiology consult, waiting for call back 05/01/19 14:51 - Labs reviewed. Notable for BNP at 1000 - Trop negative - Seen by Dr Page. Recommending transfer for pacemaker placement. Transfer arranged; accepting doctor Dr Stahl at [facility] - Pt aware of transfer - Currently stable, no hypotension, no symptoms 05/01/19 16:02 - Waiting for transfer to [facility] - Consent to be signed Discussed with Dr Oliva. Cathy Boyer PGY2 *DC/Admit/Observation/Transfer Diagnosis at time of Disposition: Bradycardia with less than 30 beats per minute - Discharge Dispostion Disposition: TRANSFER ACUTE CARE/OTHER HOSP - Referrals - Patient Instructions - Post Discharge Activity - Transfer to Acute Care Facility Receiving Facility: [facility] Accepting Physician:: Dr Erasmo Kerns
[2019-05-01 12:28] LABS: BASO % 0.3 % (0-2.0); HEMATOCRIT 39.8 % (35.4-49); HEMOGLOBIN 13.4 GM/dl (11.7-16.9); LYMPH % 17.5 % (8-40); MCH 32.6 pg (25.7-33.7); MCHC 33.6 g/dl (32.0-35.9); MEAN CELL VOLUME 96.8 fl (80-96); MEAN PLT VOLUME 12.8 fl (7.5-11.1); MONO % 9.2 % (3.8-10.2); PLATELET COUNT 99 K/MM3 (134-434); RBC 4.11 M/mm3 (4.00-5.60); RDW 13.3 % (11.9-15.9); WHITE BLOOD COUNT 4.2 K/mm3 (4.0-10.8)
[2019-05-01 12:36] LABS: ALBUMIN 3.3 g/dl (3.4-5.0); CALCIUM 8.7 mg/dl (8.5-10); CREATININE 1.2 mg/dl (0.55-1.3); MAGNESIUM 1.8 mg/dL (1.8-2.4); POTASSIUM 4.7 mmol/L (3.5-5.1); TOT PROT 6.8 g/dl (6.4-8.2)
[2019-05-01 12:42] LABS: PHOSPHOROUS 3.6 mg/dl (2.5-4.9)
--- NOTE | 2019-05-01 12:44 | PDOC ---
Attending Attestation - Resident Resident Name: RosalindCathy - ED Attending Attestation I have performed the following: I have examined & evaluated the patient, The case was reviewed & discussed with the resident, I agree w/resident's findings & plan, Exceptions are as noted - HPI HPI: 05/01/19 12:40 78 yo male h/o DMII, fatty liver, here today c/o feeling sob. pt describes exertional dyspena, with little walking. has h/o dvt left leg, chronic left leg swelling. denies chest pain or tightness. no orthopnea, no PND. did see a geochemist many years ago who has since passed, away. no f/c no cough. no syncopy. no other complaints. pc dr Arzola - Physicial Exam PE: 05/01/19 12:41 awake alert lungs crackles bilat bases. no wheeze. normal effort. heart irreg bradycardia. no mrg abd soft obese nontender. legs bilat nonpitting edema. left greater than right. skin warm and dry no rash. - Medical Decision Making 05/01/19 12:42 78 yo male h/o DM fatty liver, on asa here with exertional sob, found to be bradycardia from 29 - 40's. currently axs. normotensive. differential heart block, chf hypothyroid, lymesd, electrlyte abnormality. no ccb or bb. will require admission for [facility] CHF, bradycardia. EKG with second degree heart block, 2:[address] interval, plan labs panel monitor. tele. will contact dr Arzola. cardiology consult. admit tele. 05/01/19 14:[address] belkys guan in ed, ( cardiology) will transfer to [facility] for evaluation by EP admission. pacemaker. pt accepted to telemetry by Khoa Chu, geochemist at [facility].
[2019-05-01 13:54] LABS: N-TERMINAL BNP 1011.4 pg/ml (5-450)
--- NOTE | 2019-05-01 14:34 | CON.CARD ---
Consult Consult Specialty:: Cardiology Referred by:: ER Reason for Consultation:: fatigue - History of Present Illness Chief Complaint: fatigue History of Present Illness: 78M h/o DM, fatty liver p/w dyspnea, fatigue. Last seen by a internal corrosion specialist over 10 years ago, was told he would eventually need PPM has not followed up, no cardiac issues since then. 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 No chest pain , palps. Occasional dyspnea and shortness of breath when walking for the past week. - Alcohol/Substance Use Hx Alcohol Use: No - Smoking History Smoking history: Never smoked Have you smoked in the past 12 months: No Home Medications - Allergies Allergies/Adverse Reactions: Allergies Allergy/AdvReac Type Severity Reaction Status Date / Time No Known Allergies Allergy Verified 05/01/19 11:03 - Home Medications Home Medications: Ambulatory Orders Aspirin [Aspirin EC] 81 mg PO DAILY 12/30/17 Tamsulosin HCl [Flomax] 0.4 mg PO DAILY 02/09/19 Aspirin [ASA -] 325 mg PO ONCE 05/01/19 Famotidine [Pepcid] 20 mg PO DAILY 05/01/19 Metformin HCl [Metformin HCl ER] 500 mg PO DAILY 05/01/19 Family Disease History - Family Disease History Family Disease History: Heart Disease: Mother (ppm) Review of Systems - Review of Systems Constitutional: reports: No Symptoms Eyes: reports: No Symptoms HENT: reports: No Symptoms Neck: reports: No Symptoms Cardiovascular: reports: No Symptoms Respiratory: reports: No Symptoms Gastrointestinal: reports: No Symptoms Genitourinary: reports: No Symptoms Musculoskeletal: reports: No Symptoms Integumentary: reports: No Symptoms Neurological: reports: No Symptoms Endocrine: reports: No Symptoms Hematology/Lymphatic: reports: No Symptoms Psychiatric: reports: No Symptoms Vital Signs: Vital Signs Temperature 98.4 F 05/01/19 13:38 Pulse Rate 39 L 05/01/19 13:38 Respiratory Rate 20 05/01/19 13:38 Blood Pressure 137/50 L 05/01/19 13:38 O2 Sat by Pulse Oximetry (%) 98 05/01/19 13:38 Constitutional: Yes: No Distress, Calm Eyes: Yes: Conjunctiva Clear, EOM Intact HENT: Yes: Atraumatic, Normocephalic Neck: Yes: Supple, Trachea Midline Respiratory: Yes: Regular, CTA Bilaterally Gastrointestinal: Yes: Normal Bowel Sounds, Soft Cardiovascular: Yes: Bradycardia JVD: No PMI: Non-Displaced Extremities: No: Cold Edema: No Peripheral Pulses WNL: Yes Integumentary: No: Jaundice Neurological: Yes: Alert, Oriented Psychiatric: No: Agitated - Other Data Labs, Other Data: CBC, BMP 05/01/19 12:00 05/01/19 12:00 Troponin, BNP 05/01/19 05/01/19 12:00 12:00 Troponin I 0.04 B-Natriuretic Peptide 1011.4 H Troponin, BNP 05/01/19 05/01/19 12:00 12:00 Troponin I 0.04 B-Natriuretic Peptide 1011.4 H Assessment/Plan EKG: second degree AVB with 2:1 block, RBBB tele: second degree AV block CXR: mild congestion fatigue, shortness of breath, bradycardia, dizziness - likely in setting of heart block - TSH nl, not on karan blockers, lyme serologies pending although no exposure to ticks - patient accepted for transfer to [facility] by Dr. Kerns for likely ppm placement elevated BNP - mild congestion on CXR, no JVD on exam, c/o mild edema - echo pending - to be done at [facility] DM - manage per primary fatty liver - undergoing workup as outpatient
[2019-05-01 17:07] VITALS: BP 154/57; TEMP 98.3
[2019-05-01 17:17] VITALS: PULSE 39
--- NOTE | 2019-05-02 09:38 | EKG ---
Test Reason : Blood Pressure : / mmHG Vent. Rate : 041 BPM Atrial Rate : 080 BPM P-R Int : 228 ms QRS Dur : 172 ms QT Int : 654 ms P-R-T Axes : 053 -58 002 degrees QTc Int : 539 ms SINUS RHYTHM WITH 2ND DEGREE A-V BLOCK WITH 2:1 A-V CONDUCTION RIGHT BUNDLE BRANCH BLOCK LEFT ANTERIOR FASCICULAR BLOCK BIFASCICULAR BLOCK SEPTAL INFARCT (CITED ON OR BEFORE 04-JUL-2017) ABNORMAL ECG Confirmed by Vazquez Licona MD ([id number]) on 05/02/2019 9:38:38 AM Referred By: MD JEAN Confirmed By:Vazquez Licona MD
== END | disposition short-term general hospital (02) ==
LOC: FER 11:02
DX: R00.1 Bradycardia, unspecified (principal); E11.9 Type 2 diabetes mellitus without complications; Z86.718 Personal history of other venous thrombosis and embolism
CPT/HCPCS: 36415; 71045-TC-FY; 80053; 82553; 83735; 83880; 84100; 84443; 84484; 85025; 86618; 93005; 99285-25

== ENCOUNTER 2020-03-04 08:46 | Day surgery (SDC) | payer BC ==
[2020-03-01 15:03] VITALS: BMI 28.0
[2020-03-04 09:19] VITALS: TEMP 97.5
[2020-03-04] MEDS ORDERED: LIDOCAINE HCL/PF 2% SDV 5ML VIAL ONE (10:34)
[2020-03-04] MEDS ORDERED: PROPOFOL 20 ML ONE (10:35)
[2020-03-04 11:31] VITALS: BP 130/65; PULSE 66
--- NOTE | 2020-03-06 15:43 | PATH ---
Surgical Pathology Report Patient Name: JEFFERSON FLEMING [facility]. Rec. #: [id number] /Age/Gender: 1940 (Age: 79) / M Account: [id number] Location: [facility] Taken: 03/04/2020 Received: 03/04/2020 Reported: 03/06/2020 Physicians: Cordell James M.D. Specimen(s) Received GASTRIC ANTRUM Clinical History GERD Postoperative diagnosis: Gastritis Final Diagnosis GASTRIC ANTRUM, BIOPSY: MODERATE CHRONIC GASTRITIS WITH INTESTINAL METAPLASIA. IMMUNOSTAIN IS NEGATIVE FOR H. PYLORI ORGANISMS. Electronically Signed Tish Meyers M.D. Gross Description Received in formalin, labeled "biopsy gastric antrum" is a vasquez, irregular portion of soft tissue measuring 0.3 cm. in greatest dimension. The specimen is submitted in toto in one cassette. [facility]
== END 2020-03-04 11:30 | disposition home or self-care (01) ==
LOC: FASU 08:46
PROVIDERS: ATTEND Internal Medicine Gastroenterology
PROC: 0DB68ZX Excision of Stomach, Via Natural or Artificial Opening Endoscopic, Diagnostic (ICD-10-PCS; principal; 2020-03-04 10:35)
DX: Z13.810 Encounter for screening for upper gastrointestinal disorder (principal); K29.50 Unspecified chronic gastritis without bleeding; K31.9 Disease of stomach and duodenum, unspecified
CPT/HCPCS: 82962; 88305-TC; 88342-TC

== ENCOUNTER 2023-03-29 10:52 | Day surgery (SDC) | payer OTHER, BC, MEDICARE ==
[2023-03-26 14:58] VITALS: BMI 27.1
[2023-03-29 12:41] VITALS: RESP 16; TEMP 98
[2023-03-29 12:47] VITALS: BP 110/62; PULSE 64
== END 2023-03-29 13:46 | disposition home or self-care (01) ==
LOC: FASU-ENDO 10:52
PROVIDERS: ATTEND Internal Medicine Gastroenterology
PROC: 0DB68ZX Excision of Stomach, Via Natural or Artificial Opening Endoscopic, Diagnostic (ICD-10-PCS; principal; 2023-03-29 12:15)
DX: Z13.810 Encounter for screening for upper gastrointestinal disorder (principal)
CPT/HCPCS: 82962; 88305-TC; 88342-TC